=== PATIENT | male | born 1940 | race Caucasian/White ===

== ENCOUNTER 2020-11-11 15:51 | Inpatient (IN) | payer BC ==
[~2020-11-11] VITALS: Ht 188 cm; Wt 99.4 kg
--- NOTE | 2020-11-11 16:17 | NUR ---
cc of cp for 5 days, starts "as a hollow pain then goes to excruciating pain, then numbness starts to my shoulder to elbows, then sick to my stomach and vomiting". + neck pain. pain comes and goes. family at bedside
[2020-11-11 16:42] LABS: BASOPHILS % (AUTO) 1 % (0-1); EOSINOPHILS % (AUTO) 1 % (1-7); LYMPHOCYTES % (AUTO) 34 % (22-44); MEAN CORPUSCULAR HEMOGLOBIN 34.4 pg (27.5-34.5); MEAN CORPUSCULAR HGB CONC 34.1 g/dL (33.2-36.2); MEAN PLATELET VOLUME 10.4 fL (7.4-10.4); MONOCYTES % (AUTO) 11 % (2-9); NEUTROPHILS % (AUTO) 53 % (42-75); PLATELET COUNT 169 x10^3/uL (130-400); RED BLOOD COUNT 4.77 x10^6/uL (4.38-5.82); RED CELL DISTRIBUTION WIDTH 13.8 % (9.4-14.8)
[2020-11-11 16:48] LABS: ALANINE AMINOTRANSFERASE 40 U/L (12-78); ALBUMIN 3.7 g/dL (3.4-5.0); ANION GAP 6 mmol/L (5-15); CALCIUM 8.8 mg/dL (8.5-10.1); CHLORIDE 111 mmol/L (98-107); CREATININE 1.16 mg/dL (0.7-1.3)
[2020-11-11 16:52] LABS: ALKALINE PHOSPHATASE 81 U/L (45-117); BILIRUBIN,TOTAL 0.6 mg/dL (0.2-1.0); TOTAL PROTEIN 6.9 g/dL (6.4-8.2); TROPONIN I < 0.015 ng/mL (0.000-0.045)
[2020-11-11 16:53] LABS: MD NO
[2020-11-11] MEDS ORDERED: ASPIRIN 325 MG TABLET PO PRN (17:30)
[2020-11-11] MEDS ORDERED: ASPIRIN 81 MG TABLET CHEW ONE (17:56)
[2020-11-11] MEDS ORDERED: ASPIRIN 81 MG TABLET CHEW PO ONE (18:00)
--- NOTE | 2020-11-11 18:01 | NUR ---
pt took 81 mg aspirin at home, dr cagle made aware, new orders placed for 243 mg aspirin for total of 324 today.
--- NOTE | 2020-11-11 19:22 | NUR ---
ATT #1 FOR REPORT. RN TO CALL BACK
[2020-11-11] MEDS ORDERED: ENALAPRILAT 1.25 MG/ML, 2ML IVPush PRN (19:30)
[2020-11-11] MEDS ORDERED: LIDODERM REMOVE PATCH NOTE XX PRN (19:30)
[2020-11-11] MEDS ORDERED: LIDODERM 5% PATCH TD PRN (19:30)
[2020-11-11] MEDS ORDERED: MELATONIN 5 MG TABLET PO PRN (19:30)
[2020-11-11] MEDS ORDERED: DOCUSATE 100 MG CAPSULE PO PRN (19:30)
[2020-11-11] MEDS ORDERED: morphine SULFATE 10 MG/ML, 1ML IVPush PRN (19:30)
[2020-11-11] MEDS ORDERED: NITROGLYCERIN 0.4 MG BOTTLE (25 TABS) SL PRN (19:30)
[2020-11-11] MEDS ORDERED: ACETAMINOPHEN 325 MG TABLET PO PRN (19:30)
--- NOTE | 2020-11-11 19:36 | NUR ---
REPORT GIVEN TO LORY RIVAS
[2020-11-11 20:52] VITALS: BP 151/61
[2020-11-11] MEDS: HEPARIN 5,000 UNITS/ML, 1ML SQ SCH (22:00)
[2020-11-11 23:21] LABS: TROPONIN I < 0.015 ng/mL (0.000-0.045)
[2020-11-12] MEDS ORDERED: OMEP20TA62 PO (01:21)
[2020-11-12] MEDS ORDERED: METO25TA4 PO (01:21)
[2020-11-12] MEDS ORDERED: ATOR40TA78 PO (01:21)
[2020-11-12 01:24] VITALS: BP 146/79
[2020-11-12 05:13] LABS: BASOPHILS % (AUTO) 1 % (0-1); EOSINOPHILS % (AUTO) 2 % (1-7); LYMPHOCYTES % (AUTO) 35 % (22-44); MEAN CORPUSCULAR HEMOGLOBIN 34.7 pg (27.5-34.5); MEAN CORPUSCULAR HGB CONC 34.4 g/dL (33.2-36.2); MEAN PLATELET VOLUME 10.7 fL (7.4-10.4); MONOCYTES % (AUTO) 11 % (2-9); NEUTROPHILS % (AUTO) 51 % (42-75); PLATELET COUNT 155 x10^3/uL (130-400); RED BLOOD COUNT 4.38 x10^6/uL (4.38-5.82); RED CELL DISTRIBUTION WIDTH 13.7 % (9.4-14.8)
[2020-11-12 05:27] LABS: ANION GAP 3 mmol/L (5-15); CALCIUM 8.6 mg/dL (8.5-10.1); CHLORIDE 110 mmol/L (98-107)
[2020-11-12 05:35] LABS: TROPONIN I < 0.015 ng/mL (0.000-0.045)
[2020-11-12 05:42] LABS: MD NO
[2020-11-12] MEDS: HEPARIN 5,000 UNITS/ML, 1ML SQ SCH ×2 (06:02→12:00)
[2020-11-12 07:18] VITALS: BP 141/79
[2020-11-12] MEDS ORDERED: ASPIRIN 81 MG TABLET EC PO SCH (08:30)
[2020-11-12] MEDS: SODIUM CHLORIDE 0.9% 1,000 ML IV SCH ×4 (09:13→22:05)
[2020-11-12] MEDS ORDERED: HEPARIN 1,000 UNITS/ML, 10ML ONE (12:34)
[2020-11-12] MEDS ORDERED: LIDOCAINE-MPF 1%, 5ML ONE (12:34)
[2020-11-12] MEDS ORDERED: TICAGRELOR 90 MG TABLET ONE (12:34)
[2020-11-12] MEDS ORDERED: BIVALIRUDIN 250 MG ONE ×2 (12:34→13:59)
[2020-11-12] MEDS ORDERED: FENTANYL PF 100 MCG/2ML ONE (12:34)
[2020-11-12] MEDS ORDERED: MIDAZOLAM 1 MG/ML, 5ML ONE (12:34)
[2020-11-12] MEDS ORDERED: VERAPAMIL 2.5 MG/ML, 2ML ONE (12:34)
[2020-11-12] MEDS ORDERED: METOPROLOL 1 MG/ML, 5ML ONE (13:50)
[2020-11-12] MEDS ORDERED: ASPIRIN 325 MG TABLET EC ONE (13:59)
[2020-11-12 14:25] VITALS: BP 120/59
[2020-11-12] MEDS ORDERED: BIVALIRUDIN 250 MG in SODIUM CHLORIDE 0.9% 50 ML IV SCH (14:30)
[2020-11-12] MEDS: TICAGRELOR 90 MG TABLET PO SCH (20:20)
[2020-11-12] MEDS ORDERED: ATORVASTATIN 80 MG TABLET PO SCH (21:00)
[2020-11-13 00:29] VITALS: BP 129/64
[2020-11-13] MEDS: SODIUM CHLORIDE 0.9% 1,000 ML IV SCH ×2 (03:42→10:00)
[2020-11-13 05:12] LABS: ANION GAP 6 mmol/L (5-15); CALCIUM 8.3 mg/dL (8.5-10.1); CHLORIDE 111 mmol/L (98-107); CREATININE 1.02 mg/dL (0.7-1.3)
[2020-11-13 07:38] VITALS: BP 140/85
[2020-11-13] MEDS: TICAGRELOR 90 MG TABLET PO SCH (08:14)
[2020-11-13] MEDS ORDERED: ASPIRIN 81 MG TABLET EC PO SCH (09:00)
[2020-11-13] MEDS ORDERED: ASPI81TA45 PO (09:07)
[2020-11-13] MEDS ORDERED: TICA90TA PO (09:07)
[2020-11-13] MEDS ORDERED: ATOR-2 PO (09:07)
[2020-11-13] MEDS ORDERED: NITR0.4T28 SL (09:07)
[2020-11-13] MEDS ORDERED: LISI5TAB7 PO (09:21)
== END 2020-11-13 11:08 | disposition home or self-care (01) | DRG 247 ==
LOC: ED 17:13 → EDIP 17:20 → ED 17:32 → 5SO 19:52 → DCLOUNGE 11-13 10:58
PROVIDERS: ADMIT Family Medicine; ATTEND Family Medicine
PROC: 027034Z Dilation of Coronary Artery, One Artery with Drug-eluting Intraluminal Device, Percutaneous Approach (ICD-10-PCS; principal; 2020-11-12)
PROC: 4A023N7 Measurement of Cardiac Sampling and Pressure, Left Heart, Percutaneous Approach (ICD-10-PCS; 2020-11-12)
PROC: B2111ZZ Fluoroscopy of Multiple Coronary Arteries using Low Osmolar Contrast (ICD-10-PCS; 2020-11-12)
PROC: B2151ZZ Fluoroscopy of Left Heart using Low Osmolar Contrast (ICD-10-PCS; 2020-11-12)
DX: I25.110 Atherosclerotic heart disease of native coronary artery with unstable angina pectoris (principal); I49.3 Ventricular premature depolarization; E78.5 Hyperlipidemia, unspecified; I10 Essential (primary) hypertension; D75.89 Other specified diseases of blood and blood-forming organs; Z82.49 Family history of ischemic heart disease and other diseases of the circulatory system
CPT/HCPCS: 36415; 93458; 96372; 99285; C9600; 80048; 80053; 82607; 83735; 83880; 84100; 84443; 84484; 85025; 93005; 93306; 99156; 99157; C1769; C1894; G0378; J0583; J1644; J2250; J3010; C1725; C1874; C1887; J7030; Q9967